=== PATIENT | female | born 1975 | race Caucasian/White ===

== ENCOUNTER 2019-01-01 23:01 | Inpatient (IN) | payer OTHER ==
[~2019-01-01] VITALS: Ht 180.3 cm; Wt 111.5 kg
[~2019-01-01 23:01] MED LIST: ALLEGRA 180MG180 MG PO; AMBIEN10 MG PO; BIOTIN1000 MCG PO; CALCIUM CITRATE1 TA6 PO; CENTRUM1 TAB PO; CETIRIZINE PO; CLARITIN10 MG PO; COLACE 100100 MG/CAP PO; DIPHENHYDRAMINE50 MG PO; FOLIC ACID 40400 MCG PO; MELATONIN FORTE3 MG PO; MELATONIN PO; OMEGA-31000 MG PO; POTASSIUM GLUCO80 MG PO; PRILOSEC 20MG20 MG PO; SUPER B COMPLEX PO; SYNTHROID0.05 MG/TA PO; SYNTHROID0.1 MG PO; VENASTAT300 MG PO; VITAMIN B-12100 MCG PO; VITAMIN D31000 IU PO; VITAMIN E1000 U/CAP PO; [UNRECOGNIZED DRUG - OTHER] PO; [UNRECOGNIZED DRUG - OTHER] PO
[2019-01-01 23:20] LABS: BASO % 0.5 % (0.0-2.0); EOS # 0.2 (0.0-0.7); EOS % 2.9 % (0-4.0); GRAN # 4.5 (1.4-6.5); GRAN % 71.8 % (42.2-75.2); HEMATOCRIT 39.8 % (37.0-47.0); HEMOGLOBIN 13.1 g/dl (12.5-16.0); LYMPH # 1.2 (1.2-3.4); LYMPH % 19.1 % (20.0-51.0); MEAN CELL VOLUME 95 fl (80.0-100.0); MEAN CORPUSCULAR HEMOGLOBIN 31 pg (27.0-31.0); MEAN CORPUSCULAR HGB CONC 33 g/dl (33.0-37.0); MONO # 0.3 (0.1-0.6); MONO % 5.4 % (1.7-9.3); PLATELET COUNT 178 K/mm3 (130-400); REDCELL DISTRIBUTION WIDTH-CV 14.5 % (11.5-14.5)
[2019-01-01 23:26] LABS: INR 1.1 (0.8-3.0); PROTHROMBIN TIME 12.6 SECONDS (9.7-12.8)
[2019-01-01 23:30] LABS: ACETAMINOPHEN < 10 ug/mL (10-30); ALANINE AMINOTRANSFERASE 20 U/L (9-52); ALBUMIN 3.8 gm/dL (3.5-5.0); ALCOHOL(ethanol),MEDICAL 61 mg/dL; ALKALINE PHOSPHATASE 57 U/L (50-136); ANION GAP 16 mmol/L (7-16); AST,SGOT 31 U/L (15-37); BILIRUBIN,TOTAL 0.4 mg/dL (0.0-1.0); BLOOD UREA NITROGEN 8 mg/dL (7-17); CALCIUM 8.3 mg/dL (8.4-10.2); CARBON DIOXIDE 22 mmol/L (22-30); CHLORIDE 109 mmol/L (98-107); CREATININE, serum 0.79 (0.52-1.25); GLUCOSE 95 mg/dL (74-106); POTASSIUM 3.2 mmol/L (3.4-5.0); SALICYLATE < 1.0 mg/dL; SODIUM 147 mmol/L (137-145); TOTAL PROTEIN 6.3 gm/dL (6.4-8.2)
[2019-01-01 23:35] LABS: COLLECTION METHOD CATHETER
[2019-01-01 23:41] LABS: TROPONIN-I < 0.012 ng/mL (0.000-0.035)
[2019-01-01 23:44] LABS: MUCOUS Present /lpf; PH 6 (5-8); SQUAMOUS EPITHELIAL 0-2 /hpf; URINE APPEARANCE Hazy; URINE BACTERIA Rare /hpf; URINE BILIRUBIN Negative (NEGATIVE); URINE BLOOD 1+ (NEGATIVE); URINE COLOR Yellow; URINE GLUCOSE Negative (NEGATIVE); URINE KETONE Negative (NEGATIVE); URINE LEUKOCYTE ESTERASE Trace (NEGATIVE); URINE NITRATE Negative (NEGATIVE); URINE PROTEIN(semi-quant) Negative (NEGATIVE); URINE RBC 0-2 /hpf
[2019-01-01 23:46] LABS: ARTERIAL BLD GAS O2 SATURATION 95.5 % (92-100); ARTERIAL BLD GAS TCO2 CT 21.7; ARTERIAL BLOOD GAS BASE EXCESS -4.3 (-2-2); ARTERIAL BLOOD GAS HCO3 20.6 meq/L (22-26); ARTERIAL BLOOD GAS PCO2 37.2 mmHg (35-45); ARTERIAL BLOOD GAS PO2 86.9 mmHg (80-100); ARTERIAL BLOOD GAS pH 7.36 (7.35-7.45)
[2019-01-01 23:51] LABS: TRICYCLIC ANTIDEPRESS URINE POSITIVE
[2019-01-02] VITALS (390 sets, daily range): BP systolic 92–133; BP diastolic 55–86; PULSE 60–83; TEMP 97.7–99.1; O2SAT 62–100
--- NOTE | 2019-01-02 02:12 | NUR ---
Report called over by ROCHELLE Aceves in the ED. Patient will be brought over on the vent with respiratory.
--- NOTE | 2019-01-02 02:50 | NUR ---
Patient arrives at this time via stretcher with ROCHELLE Aceves and being bagged by RT Nadia. Patient transferred to unit bed via slide board. Patient attached to unit monitoring equipment and placed on ventilator. Assessment complete. Assessment reveals coarse lung sound with crackles in all rodriguez and diminished bases. HR and rhythm regular with normal S1 and S2 heard. HR in the 60's and normal sinus. Blood pressures are stable in the 120's systolic. bowel sounds active x4. Patient has multiple skin issues to include generalized bruising, especially on the arms. There is a large bruise to her right buttock. There are puncture mccormack in bilateral antecubitals that are comparable to track mccormack. Patient also have generalized scratches, some with small scabs, all are intact. There is no family with patient on arrival to unit. Admission assessment completed with paperwork from [facility]. Patient is only reactive to pain, she will move her arms and legs. Patient does not open eyes to any stimuli. Pupils are fixed at 2mm and nonreactive. No evidence of tracking movement. Patient does not follow commands, no movement noted. Will continue to monitor frequently. Nothing further at this time. Will continue to monitor. Call light within reach.
--- NOTE | 2019-01-02 03:00 | NUR ---
PATIENT BROUGHT OVER ALREADY ON PROPOFOL DRIP RUNNING AT 35MCG/KG/MIN OR 23.1ML/HR. CONTINUING AT THIS DOSE
[2019-01-02] MEDS ORDERED: MAXALT10 MG PO (04:07)
[2019-01-02] MEDS ORDERED: VYVANSE70 MG PO (04:08)
[2019-01-02] MEDS ORDERED: NUVIGIL250 MG (04:08)
[2019-01-02] MEDS ORDERED: XANAX 0.5MG0.5 MG PO (04:09)
[2019-01-02] MEDS ORDERED: MINIPRESS2 MG (04:10)
[2019-01-02] MEDS ORDERED: REXULTI3 MG PO (04:10)
[2019-01-02] MEDS ORDERED: EFFEXOR 75M75 MG/TAB PO (04:11)
[2019-01-02] MEDS ORDERED: REQUIP 1MG T1 MG/TAB PO (04:12)
--- NOTE | 2019-01-02 04:15 | NUR ---
Patient remains nonreactive with only slight movements to painful stimuli. Patient's pupils are now at 4mm, but still fixed. No tracking noted. Not following commands.
[2019-01-02] MEDS ORDERED: MINIPRESS 1M1 MG/CAP PO (04:25)
[2019-01-02 05:12] LABS: BASO % 0.5 % (0.0-2.0); EOS # 0.1 (0.0-0.7); EOS % 1.7 % (0-4.0); GRAN # 4.6 (1.4-6.5); GRAN % 77.4 % (42.2-75.2); HEMATOCRIT 38.7 % (37.0-47.0); HEMOGLOBIN 12.6 g/dl (12.5-16.0); LYMPH # 0.9 (1.2-3.4); LYMPH % 15.7 % (20.0-51.0); MEAN CELL VOLUME 96 fl (80.0-100.0); MEAN CORPUSCULAR HEMOGLOBIN 31 pg (27.0-31.0); MEAN CORPUSCULAR HGB CONC 33 g/dl (33.0-37.0); MEAN PLATELET VOLUME 11.3 fl (7.4-10.4); MONO # 0.3 (0.1-0.6); MONO % 4.5 % (1.7-9.3); PLATELET COUNT 161 K/mm3 (130-400); RED BLOOD COUNT 4.02 M/mm3 (4.10-5.30); REDCELL DISTRIBUTION WIDTH-CV 14.5 % (11.5-14.5)
[2019-01-02 05:24] LABS: ALBUMIN 3.5 gm/dL (3.5-5.0); BILIRUBIN,TOTAL 0.3 mg/dL (0.0-1.0); CREATININE, serum 0.64 (0.52-1.25); MAGNESIUM 1.9 mg/dL (1.6-2.3); POTASSIUM 4.3 mmol/L (3.4-5.0)
--- NOTE | 2019-01-02 05:24 | NUR ---
FENTANYL DRIP STARTED AT THIS TIME AT 25MCG/HR OR 1.3ML/HR
--- NOTE | 2019-01-02 05:40 | NUR ---
Patient is alert and fully awake on the vent. Patient's pupils are brisk and reactive. Patient is following commands. Patient is repeatedly trying to sit forward and pull at the vent, Propofol and fentanyl are being increased for patient comfort as she is becoming very agitated. Will stay with patient until more relaxed.
[2019-01-02 05:54] LABS: TSH w REFLEX 1.33 uIU/mL (0.465-4.680)
[2019-01-02 05:55] LABS: ARTERIAL BLD GAS O2 SATURATION 98.7 % (92-100); ARTERIAL BLD GAS TCO2 CT 22.3; ARTERIAL BLOOD GAS BASE EXCESS -1.7 (-2-2); ARTERIAL BLOOD GAS HCO3 21.3 meq/L (22-26); ARTERIAL BLOOD GAS PCO2 31.2 mmHg (35-45); ARTERIAL BLOOD GAS pH 7.45 (7.35-7.45)
[2019-01-02 05:56] LABS: ARTERIAL BLOOD GAS PO2 189.4 mmHg (80-100)
--- NOTE | 2019-01-02 06:15 | NUR ---
PATIENT IS STARTING TO WAKE UP AND IS RESPONSIVE TO VOICE, FOLLOWING COMMANDS, PUPILS REACTIVE. INCREASE PROPOFOL AND FENTANYL AT THIS TIME
--- NOTE | 2019-01-02 07:00 | NUR ---
Pt intubated with sedation infusing. Pt able to follow commands, responds appropriately with hand squeezes and nodding. At 0745 MD Trista called and updated - MD reported to me that he had not yet been called on consultation for pharmacy technician per diem management - updated on current Propofol and Fentanyl gtt rate - ordered to discontinue right away. Order carried out. 0815 MD Trista at bedside assessing pt - ordered to extubate 0830 pt extubated with Patience,RT - pt tolerated well - O2 via Nasal Cannula in place SpO2>95% 0840 Pt states "I just want to . I want to go. My doesnt love me any more, he left me, he left me, he left me. I just wanted my to leave me alone so I could have killed myself." MD Trista on unit and notified. Suicide precautions in place. 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 ROCHELLE Stahl at bedside with me unsuccessfully calming down the pt. View RASS score in IV gtt titrate documentation. Pt educated on hospital protocol and precautions for suicide. 0905 pt standing up right by bed, ROCHELLE Stahl MD Angie,ROCHELLE and health promotion officer and I all by pt side to prevent a fall (fall risk band, signage and socks in place (large gown in place d/t obesity instead of yellow gown)) 0917 pt agreeable to sitting back in bed and laying down, blankets in place, call light in reach, pt now resting quietly with eyes closed responding appropriately to voice, following all commands, Vital signs remained stable. ETC02 standing by if pt RASS decreases. RT aware
--- NOTE | 2019-01-02 07:20 | NUR ---
Bedside report given to ROCHELLE Almanzar.
--- NOTE | 2019-01-02 07:45 | NUR ---
PT PLACED ON CPAP 5/5 AT THIS TIME. PT ALERT AND FOLLOWING COMMANDS. 0745 PT PLACED ON SMART CARE AT THIS TIME. DR. SILVA CALLED BY ROCHELLE KLINE TO UPDATE ON PATIENTS STATUS. [address] SILVA. PT HAD A POSITIVE CUFF LEAK. NIF OF -30. NO STRIDOR POST EXTUBATION. PT PLACED ON 2LNC WITH NO DISTRESS NOTED OTHER THAN EMOTIONAL. ROCHELLE KLINE AT BEDSIDE.
--- NOTE | 2019-01-02 08:35 | NUR ---
Pt requesting called - called with no answer - voicemessage left
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
--- NOTE | 2019-01-02 11:09 | NUR ---
Nurse advised I could not see the patient.
--- NOTE | 2019-01-02 12:54 | NUR ---
EtCo2 monitor applied per MD Trista order. See RT notes for alarm parameters
--- NOTE | 2019-01-02 12:54 | NUR ---
PT PLACED ON ETCO2 MONITOR AT THIS TIME PER DR. VICTORIA REQUEST. PLEASE SEE ADDITIONAL CHARTING.
--- NOTE | 2019-01-02 15:45 | NUR ---
MD Samantha okay with visit from in attempt to use least invasive stragegies for calming pt instead of administering ativan or increasing precedex gtt d/t pt's increased anxiety and aggitation requesting her husbands presence.
--- NOTE | 2019-01-02 16:00 | NUR ---
[facility] conference call complete. Pt refusing voluntary admission for psych hospitalization. Reference number:[id number] - Alicia is the health cna caregiver at [facility]. Conference call with Pt's spouse JeradarturoAlicia and myself complete. updated, all questions invited and all answered. Alicia stated she will file the proper paperwork to get pt admitted Pt udated on required mandatory psych admission to a hosptial, pt states "I will not go, I do not have to go. I dont need to go, I will be fine. I have to start a new job on Friday." allowed to vist under my supervision for 5min d/t pt insistently repeating "does not love me anymore and I know he ditched town and left me for good". Pt happy to see , and tolerated visit well. understand and agrees to all unit rules and policies, he will be in waiting room until able to visit again.
--- NOTE | 2019-01-02 19:20 | NUR ---
Pt report received from Yohan Ayala RN. Pt resting in bed with intermittent calls with use of the call light during report. Pt first requested tea which was ordered from room service with extra placed in the fridge on the unit. Pt then stated "I heard you out there talking about my medications, I can answer those myself." Both nurses ensured to pt that medication were not being discussed. Pt kept requesting that "Gilbert" be let in and that "I am no longer a threat to myself, I am going home." Pt removed telemetry wires from chest as well as blood pressure cuff from arm and movements were consistent with getting out of bed. PRN ativan was obtained and administered. Pt also bit off fall wrist bracelet during this time which was thrown into the trash.
--- NOTE | 2019-01-02 19:20 | NUR ---
Pt attempting to climb out of bed. Re-orientation unsuccessful - pt continuing attempt to climb out of bed stating "I am leaving AMA, you cannot hold me here. Get Jeradbert to pick me up, I am leaving." ROCHELLE Fuller called into room for assistance - PRN ativan administered - pt then agreeable to lay back in bed. Bed alarm on.
--- NOTE | 2019-01-02 20:30 | NUR ---
Pt continues to ask for Gilbert when nurse enters the room. Pt notified that at this time visitors are not allowed. Pt requested a paper and pen to write spouse a letter. liquid yeast supervisor notified and clarification received at this time for ability to allow pt this request.
--- NOTE | 2019-01-02 20:45 | NUR ---
Paper and pencil provided for pt to write a letter to spouse per request. Pt strictly monitored during this time. Utensil and paper removed following.
--- NOTE | 2019-01-02 23:35 | NUR ---
Pt has been restless in bed for the last 15 minutes. This nurse stayed at bedside during this time. When asked if pt knew where she was at and why, pt replied "I know araceli well where im at". Pt took off telemetry box/ leads as well as blood pressure at this time saying "I am leaving AMA". Pts right hand made the motion as if reaching for the IV in the left arm although didnt touch the IV at this time. Pt repeated multiple times "I need to see Jerad". "I am not suicidal anymore, I just want to go home." When asked what changed from this morning pt replied "sleep". Pt was notified that talking to Jerad or seeing him at this time was not going to happen that pt would be reassessed in the morning. Pt replied "If you are not going to, get someone who will tonight". Pt rested in a sitting position, talking in a quiet tone to this nurse after increase in Precedex with eyes closed. Nurse left the room and pt soon laid down.
[2019-01-03] VITALS (223 sets, daily range): BP systolic 115–129; BP diastolic 69–77; PULSE 45–80; TEMP 97.8–99.6; O2SAT 76–100
--- NOTE | 2019-01-03 06:00 | NUR ---
Pt woke up while nurse was in the room. Noted the toothbrush on the bedside table and asked about talking to her spouse at this time. "I need to hear that he still loves me, and that I have a home and I am still ". Pt was told that until she sees the doctor contact with will not be allowed. 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 Singh during rounds. Pt was notified. Pt stated "I will leave AMA then, I am not suicidal anymore, all I needed was some sleep. I want to go home to my where I will be safe." Pt was notified that being in this hospital at this time was to ensure safety not only now but to get the proper help in order to continue to be safe in the future. This nurse also stated that if pt was to attempt to get out of bed in attempts to leave AMA that security would be called. Due to the suicidal attempts and verbal confirmation of suicial ideation following extubation pt is not able to leave AMA and is in the process of placement into OSH. Pt stated "Ill be damned if I go to [facility], I start a job on Friday and I don't have time for this". Pt agreed to placement into [facility]. Pt then laid down and asked this nurse "how long am I going to be in the hell hole." Pt was notified that an exact time is not known as to when transfer would be initiated. Pt was offered a warm blanket although by this time had eyes closed and did not responde. This nurse reported to pt to notify staff at any time if one is wanted in the future. o and m supervisor Helen Ford is currently at bedside with pt.
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
--- NOTE | 2019-01-03 06:50 | NUR ---
Bedside report provided to Yohan Ayala RN.
--- NOTE | 2019-01-03 07:00 | NUR ---
Pt remains extubated, resting with eyes closed, Vital signs stable, room air, bradycardia noted, unknown baseline HR while sleeping prior to admission. MD Trista and MD Samantha state pt is medically cleared to transfer to psychiatric hospital now.
--- NOTE | 2019-01-03 07:00 | NUR ---
Pt sleeping, while awake pt alert and oriented. Pt refusing and removing continuous SpO2 and EKG monitoring. MD Trista aware. Precedex gtt and NS infusing, hidden lock-out on IV pumps turned on to prevent pt from altering gtts. Call light in reach.
[2019-01-03 08:42] LABS: BASO % 0.7 % (0.0-2.0); EOS # 0.1 (0.0-0.7); EOS % 3.2 % (0-4.0); GRAN # 2.6 (1.4-6.5); GRAN % 63.7 % (42.2-75.2); LYMPH # 1.1 (1.2-3.4); MEAN CELL VOLUME 96 fl (80.0-100.0); MEAN CORPUSCULAR HEMOGLOBIN 32 pg (27.0-31.0); MEAN CORPUSCULAR HGB CONC 33 g/dl (33.0-37.0); MEAN PLATELET VOLUME 11.4 fl (7.4-10.4); MONO # 0.3 (0.1-0.6); MONO % 6.2 % (1.7-9.3); PLATELET COUNT 114 K/mm3 (130-400); REDCELL DISTRIBUTION WIDTH-CV 14.3 % (11.5-14.5)
[2019-01-03 08:44] LABS: HEMATOCRIT 36.6 % (37.0-47.0)
[2019-01-03 08:55] LABS: CALCIUM 7.4 mg/dL (8.4-10.2); CREATININE, serum 0.58 (0.52-1.25); POTASSIUM 3.5 mmol/L (3.4-5.0)
--- NOTE | 2019-01-03 09:06 | NUR ---
MD Trista and MD Samantha at bedside assessing pt and recieving updates. Plan of care reviewed - pt has no interest.
--- NOTE | 2019-01-03 09:55 | NUR ---
Alicia from [facility] called - informed me to fax nurses notes, most recent vitals, and the pharmacies pt has been using. 1025 Tatianna from the onboarding process at [facility] called and informed fax had been sent (fax had not yet arrived). Return phone number proivded to Tatianna.
--- NOTE | 2019-01-03 11:00 | NUR ---
Pt refusing q2hr vital signs, MD Trista and MD Samantha aware
--- NOTE | 2019-01-03 12:11 | NUR ---
Patient lives at home with her new (Jose A) in [place], [place] and plans to return home upon discharge as her recovery and mental health allows. Patient is independent with daily living activities and has a history of working in nursing. Patient has no durable medical equipment usage or anticipated needs, her primary care physician is Boliv[facility] Mcpherson, her pharmacy is [facility], and shes does not have advance directives for healthcare completed at this time. No further needs at this time and manager social services will follow as needed for possible mental health discharge options.
--- NOTE | 2019-01-03 12:55 | NUR ---
MD Samantha at bedside talking with pt. Pt becoming aggitated stating she needs to go to work tomorrow for a new job, and stating she is not suicidal anymore.
--- NOTE | 2019-01-03 14:05 | NUR ---
[facility] called stating pt has been accepted to [facility] - report kari Min RN - all questions answered. MD Samantha notified and provided phone number for MD to MD report. gambling supervisor notified for transportation. in waiting room and has been updated.
[2019-01-03] MEDS ORDERED: ADDERALL30 MG PO (14:36)
--- NOTE | 2019-01-03 15:22 | NUR ---
Precedex gtt discontinued
--- NOTE | 2019-01-03 15:50 | NUR ---
EMS arrived. Pt asked to transport self to stretcher. Pt refusing and becoming aggitated stating "I will not go without seeing my " when educated that she will not be able to see him pt stood up out of bed and ambulated to commode, urinated, then placed self back in bed and layed down stating "I am not going, I want to leave AMA". PRN ativan administered. Pt re-educated regarding inability to leave against medical advice. 1557 pt gets out of bed and ambulates to stretcher and lays down while stating "Fine I will go. I have more medication at home I will just kill myself once I get back home." MD Samantha notified - ROCHELLE Min at [facility] called and notified also about her continued suicidial ideation and plan. Reported to ROCHELLE Min also that [address] for transport, and that pt has voided since Garcia discontinuation. had left waiting room to get pt's wallet and phone from her vehicle, at that time hospital staff was attempting to get proper proof of insurance, therefore left and was gone during transfer of care to EMS for transport.
--- NOTE | 2019-01-03 16:01 | NUR ---
1601: Pt escorted out of unit by EMS staff. See Suicide Risk Observation Flow Sheet for this time
--- NOTE | 2019-01-03 16:35 | NUR ---
Jose A, pt's here with pt's ID and insurance card - has took documents to administration where they reportedly made copies for hospital record. Frequently asked questions, visitation hours, address and directions, suicide risk factors, and core values/misison statement from [employer] website printed out and provided to pt's . Pt expressed thanks for helping with his and stated he was very grateful for our care.
== END 2019-01-03 16:01 | DRG 917 ==
LOC: COL.ER 23:01 → ICU 01-02 00:28
PROVIDERS: Emergency Medicine; Nurse Practitioner; ADMIT Hospitalist
PROC: 0BH17EZ Insertion of Endotracheal Airway into Trachea, Via Natural or Artificial Opening (ICD-10-PCS; principal; 2019-01-02)
PROC: 5A1935Z Respiratory Ventilation, Less than 24 Consecutive Hours (ICD-10-PCS; 2019-01-02)
DX: T43.012A Poisoning by tricyclic antidepressants, intentional self-harm, initial encounter (principal); J96.00 Acute respiratory failure, unspecified whether with hypoxia or hypercapnia; R45.851 Suicidal ideations; T42.4X2A Poisoning by benzodiazepines, intentional self-harm, initial encounter; R40.2432 Glasgow coma scale score 3-8, at arrival to emergency department; Z88.7 Allergy status to serum and vaccine; Z88.8 Allergy status to other drugs, medicaments and biological substances; Z91.040 Latex allergy status; E87.6 Hypokalemia; E03.9 Hypothyroidism, unspecified; F32.9 Major depressive disorder, single episode, unspecified
CPT/HCPCS: 99222-AI; 99233-AI; 99239; J0330; J1650; J2060; J2250; J2704; J3010; J3480; J7030

== ENCOUNTER 2019-04-02 14:29 | Emergency (ER) | payer OTHER ==
[~2019-04-02] VITALS: Ht 175.3 cm; Wt 109.1 kg
[~2019-04-02 14:29] MED LIST changes: +ADDERALL30 MG PO; +EFFEXOR 75M75 MG/TAB PO; +MAXALT10 MG PO; +MINIPRESS 1M1 MG/CAP PO; +MINIPRESS2 MG; +NUVIGIL250 MG; +REQUIP 1MG T1 MG/TAB PO; +REXULTI3 MG PO; +VYVANSE70 MG PO; +XANAX 0.5MG0.5 MG PO
[2019-04-02 15:09] LABS: TRICYCLIC ANTIDEPRESS URINE NEGATIVE
[2019-04-02 15:13] LABS: BASO # 0.1 (0.0-0.2); BASO % 0.6 % (0.0-2.0); EOS # 0.3 (0.0-0.7); EOS % 3.1 % (0-4.0); GRAN # 5.8 (1.4-6.5); GRAN % 72.7 % (42.2-75.2); HEMATOCRIT 43.6 % (37.0-47.0); HEMOGLOBIN 14.1 g/dl (12.5-16.0); LYMPH # 1.3 (1.2-3.4); LYMPH % 16.7 % (20.0-51.0); MEAN CELL VOLUME 98 fl (80.0-100.0); MEAN CORPUSCULAR HEMOGLOBIN 32 pg (27.0-31.0); MEAN CORPUSCULAR HGB CONC 32 g/dl (33.0-37.0); MEAN PLATELET VOLUME 10.9 fl (7.4-10.4); MONO # 0.5 (0.1-0.6); MONO % 6.6 % (1.7-9.3); PLATELET COUNT 264 K/mm3 (130-400); RED BLOOD COUNT 4.47 M/mm3 (4.10-5.30); REDCELL DISTRIBUTION WIDTH-CV 13.2 % (11.5-14.5)
[2019-04-02 15:16] LABS: ALANINE AMINOTRANSFERASE 19 U/L (9-52); ALBUMIN 4.5 gm/dL (3.5-5.0); ALKALINE PHOSPHATASE 54 U/L (50-136); ANION GAP 10 mmol/L (7-16); AST,SGOT 28 U/L (15-37); BILIRUBIN,TOTAL 0.5 mg/dL (0.0-1.0); BLOOD UREA NITROGEN 4 mg/dL (7-17); CARBON DIOXIDE 27 mmol/L (22-30); CHLORIDE 103 mmol/L (98-107); CREATININE, serum 0.84 (0.52-1.25); GLUCOSE 91 mg/dL (74-106); SODIUM 140 mmol/L (137-145); TOTAL PROTEIN 7.3 gm/dL (6.4-8.2)
[2019-04-02 15:18] LABS: ACETAMINOPHEN < 10 ug/mL (10-30); ALCOHOL(ethanol),MEDICAL < 10 mg/dL; POTASSIUM 2.9 mmol/L (3.4-5.0); SALICYLATE < 1.0 mg/dL
[2019-04-02] MEDS ORDERED: VYVANSE70 MG PO (15:21)
[2019-04-02] MEDS ORDERED: LITHIUM 30300 MG/CAP PO (15:21)
[2019-04-02] MEDS ORDERED: AMBIEN 10MG10 MG PO (15:22)
[2019-04-02 15:33] VITALS: BP 134/82; PULSE 107; TEMP 98.9
== END 2019-04-02 18:04 ==
LOC: COL.ER 14:29
PROVIDERS: Emergency Medicine
DX: R45.851 Suicidal ideations (principal); E87.6 Hypokalemia; F32.9 Major depressive disorder, single episode, unspecified; F60.3 Borderline personality disorder

== ENCOUNTER → 2020-06-12 | Outpatient (CLI) | payer OTHER ==
[~2020-06-12] MED LIST changes: +AMBIEN 10MG10 MG PO; +LITHIUM 30300 MG/CAP PO
== END ==
LOC: COL.RAD 10:56
DX: S83.242A Other tear of medial meniscus, current injury, left knee, initial encounter (principal); M17.12 Unilateral primary osteoarthritis, left knee

== ENCOUNTER → 2020-07-10 | Outpatient (CLI) | payer OTHER | LOC: COL.RAD 09:56 | DX: M25.512 Pain in left shoulder (principal) ==